=== PATIENT | female | born 1970 ===

== ENCOUNTER 2024-08-19 12:15 | Inpatient (IN) | payer OTHER ==
[~2024-08-19] VITALS: Ht 152.4 cm; Wt 62.1 kg
[2024-08-19 13:51] VITALS: BP 135/77
[2024-08-19 13:55] VITALS: BP 140/85
[2024-08-19] MEDS ORDERED: ZOLPIDEM TARTRA10 MG PO (13:57)
[2024-08-19] MEDS ORDERED: LIPITOR20 MG PO (13:57)
[2024-08-19] MEDS ORDERED: CELEXA10 MG PO (13:58)
[2024-08-19 14:15] LABS: COVID-19 AG NEGATIVE (NEGATIVE)
[2024-08-19 14:50] LABS: RH POSITIVE
[2024-08-27] MEDS ORDERED: CEFAZOLIN SODIUM 1,000 MG VIAL ONE ×2 (09:03→17:02)
[2024-08-27] MEDS ORDERED: METRONIDAZOLE/SODIUM CHLORIDE 500 MG/100 ML PIGGYBACK IV ONE (09:03)
[2024-08-27] MEDS ORDERED: HEMOSTATIC MATRIX WITH THROMBIN KIT TOP ONE (11:17)
[2024-08-27] MEDS ORDERED: POVIDONE-IODINE 118 ML BOTT TOP ONE (11:17)
[2024-08-27] MEDS ORDERED: SURGIFLO APPLICATOR 1 EACH APPL TOP ONE (11:17)
[2024-08-27] MEDS ORDERED: RINGERS SOLUTION,LACTATED 1,000 ML IV SCH (12:45)
[2024-08-27] MEDS ORDERED: OxyCODONE HCL 5 MG TABLET (ROXICODONE) PO PRN (12:45)
[2024-08-27] MEDS ORDERED: MORPHINE SULFATE 4 MG/ML CARTRIDGE IV PRN (12:45)
[2024-08-27] MEDS ORDERED: SIMETHICONE 125 MG CAPSULE PO SCH (13:00)
[2024-08-27] MEDS ORDERED: MORPHINE SULFATE 4 MG/ML VIAL IV ONE ×2 (13:30→14:00)
[2024-08-27] MEDS ORDERED: CLONAZEPAM0.5 MG (13:36)
[2024-08-27] MEDS ORDERED: CITALOPRAM HBR20 MG (13:36)
[2024-08-27] MEDS ORDERED: CITALOPRAM HBR10 MG (13:36)
[2024-08-27] MEDS ORDERED: CEFAZOLIN SODIUM 1,000 MG VIAL IV ONE (13:45)
[2024-08-27 13:53] LABS: HEMOGLOBIN 12.6 g/dL (12.0-15.00); MEAN CELL VOLUME 93.2 fL (80.00-100.00); MEAN CORPUSCULAR HGB CONC 33.3 g/dl (32.0-36.0); PLATELET COUNT 220 K/uL (150-450); RED BLOOD COUNT 4.07 M/uL (4.00-6.00); RED CELL DISTRIBUTION WIDTH 13.9 % (11.5-14.5)
[2024-08-27 14:56] LABS: ALBUMIN 3.7 gm/dL (3.4-5.0); CALCIUM 8.7 mg/dL (8.5-10.1); CREATININE SERUM 0.66 mg/dL (0.55-1.02); GFR 92.64; PHOSPHOROUS 4.4 mg/dL (2.5-4.9); POTASSIUM 3.59 mEq/L (3.5-5.1)
[2024-08-27] MEDS ORDERED: CEFAZOLIN SODIUM 1,000 MG VIAL IV SCH (17:00)
[2024-08-27 17:49] VITALS: BP 135/77
[2024-08-27] MEDS ORDERED: KETOROLAC TROMETHAMINE 30 MG VIAL IM SCH (18:00)
[2024-08-27 20:00] VITALS: BP 124/73
[2024-08-27] MEDS ORDERED: FAMOTIDINE/PF 20 MG/2 ML VIAL IV PUSH SCH (21:00)
[2024-08-27] MEDS ORDERED: DOCUSATE SODIUM 100MG CAP PO SCH (21:00)
[2024-08-28 00:48] VITALS: BP 109/69; O2SAT 98
[2024-08-28 06:17] LABS: HEMATOCRIT 35.1 % (36.0-45.00); HEMOGLOBIN 11.7 g/dL (12.0-15.00); MEAN CORPUSCULAR HGB CONC 33.4 g/dl (32.0-36.0); PLATELET COUNT 206 K/uL (150-450); RED BLOOD COUNT 3.78 M/uL (4.00-6.00); RED CELL DISTRIBUTION WIDTH 14.1 % (11.5-14.5)
[2024-08-28 06:37] LABS: ALBUMIN 3.1 gm/dL (3.4-5.0); CALCIUM 8.7 mg/dL (8.5-10.1); CREATININE SERUM 0.59 mg/dL (0.55-1.02); GFR 105.44; PHOSPHOROUS 3.9 mg/dL (2.5-4.9); POTASSIUM 4.36 mEq/L (3.5-5.1)
[2024-08-28] MEDS ORDERED: ENOXAPARIN SODIUM 40 MG/0.4 ML SYRINGE SUBCUTANEO SCH (09:00)
[2024-08-28] MEDS ORDERED: CELECOXIB 200 MG CAPSULE PO SCH (09:00)
[2024-08-28 09:25] VITALS: BP 129/79; O2SAT 100
== END 2024-08-28 12:02 | disposition home or self-care (01) | DRG 743 ==
LOC: O/R 08-27 08:06 → SURH 08-27 12:15 → OB/GYN 08-27 14:17 → SURH 08-27 15:00 → OB/GYN 08-28 12:02 → SURH 08-28 12:15
PROVIDERS: ADMIT Obstetrics & Gynecology Gynecologic Oncology; ATTEND Obstetrics & Gynecology Gynecologic Oncology
PROC: 0UT24ZZ Resection of Bilateral Ovaries, Percutaneous Endoscopic Approach (ICD-10-PCS; 2024-08-27)
PROC: 0UT74ZZ Resection of Bilateral Fallopian Tubes, Percutaneous Endoscopic Approach (ICD-10-PCS; 2024-08-27)
PROC: 07BC4ZZ Excision of Pelvis Lymphatic, Percutaneous Endoscopic Approach (ICD-10-PCS; 2024-08-27)
PROC: 0UT94ZZ Resection of Uterus, Percutaneous Endoscopic Approach (ICD-10-PCS; principal; 2024-08-27 15:00)
DX: N80.03 Adenomyosis of the uterus (principal); N83.291 Other ovarian cyst, right side; N83.292 Other ovarian cyst, left side